=== PATIENT | male | born 1995 | race Caucasian/White ===

== ENCOUNTER 2018-12-07 17:20 | Emergency (ER) ==
[~2018-12-07] VITALS: Ht 167.6 cm; Wt 65.8 kg
[2018-12-07 17:45] VITALS: BP 125/71
[2018-12-07] MEDS ORDERED: IBUPROFEN 600 MG TABLET PO ONE ×2 (18:00→18:09)
== END 2018-12-07 19:12 | disposition home or self-care (01) ==
LOC: ER 17:26
DX: S69.81XA Other specified injuries of right wrist, hand and finger(s), initial encounter (principal); V00.131A Fall from skateboard, initial encounter; Y93.51 Activity, roller skating (inline) and skateboarding; Y92.89 Other specified places as the place of occurrence of the external cause; Y99.8 Other external cause status
CPT/HCPCS: 73130-TC